=== PATIENT | male | born 1960 | race Caucasian/White ===

== ENCOUNTER 2020-09-18 02:10 | Outpatient (CLI) | payer OTHER, SELFPAY ==
--- NOTE | 2020-09-18 08:45 | DI.RAD_ITS ---
EXAM: XR LUMBAR SPINE COMPLETE CLINICAL HISTORY: LOW BACK PAIN, M54.9. TECHNIQUE: 2D digital imaging was performed. COMPARISON: No exams were available for comparison FINDINGS: There are 5 lumbar type vertebral bodies. There is no spondylolysis or spondylolisthesis. No acute fractures or subluxations. Anterior wedging deformities are seen of T12 and L1 which appear chronic. There is disc space narrowing at T12-L1 and L4-L5. Endplate osteophytes are present throughout the lumbar spine with sparing at the L5-S1 disc level. There are degenerative changes of the facets at L3-L4, L4-L5 and L5-S1. IMPRESSION: Moderate degenerative changes throughout the lumbar spine. If there are radicular concerns an MRI of the lumbar spine may be considered for further evaluation. DATA REPOSITORY: RADIATION DOSE DELIVERED:
--- NOTE | 2020-09-18 08:45 | DI.RAD_ITS ---
EXAM: XR HIP LT COMPLETE AP PELVIS CLINICAL HISTORY: left hip pain,M25.552. TECHNIQUE: 2D digital imaging was performed. COMPARISON: No exams were available for comparison FINDINGS: BONES: No acute fracture is present. No bony destructive lesion is seen. JOINTS: No dislocation present. The hip joints are well maintained. The sacroiliac joints and symphy sis pubis appear unremarkable. Mild degenerative changes are seen in the lower lumbar spine. SOFT TISSUE: Normal. Phleboliths are seen in the pelvis. IMPRESSION: Unremarkable radiographs of the left hip. Degenerative changes in the lower lumbar spine. DATA REPOSITORY: RADIATION DOSE DELIVERED:
== END 2020-09-18 02:30 ==
PROVIDERS: PCP Emergency Medicine; Visit Provider Family Medicine
DX: M47.816 Spondylosis without myelopathy or radiculopathy, lumbar region (principal); M25.552 Pain in left hip
CPT/HCPCS: 72110; 73502

== ENCOUNTER 2020-11-10 16:20 | Outpatient (REF) | payer OTHER, SELFPAY ==
[2020-11-10 21:04] LABS: Calculated LDL 102 mg/dL (<100); Cholesterol 172 mg/dL (<200); HDL Cholesterol 59 mg/dL (40-60); Triglyceride 59 mg/dL (<150)
[2020-11-13 10:22] LABS: PSA, Screening 0.6 ng/mL (0.0-4.5)
== END 2020-11-10 16:21 | disposition home or self-care (01) ==
LOC: LBN 16:20
PROVIDERS: PCP Emergency Medicine; Visit Provider Emergency Medicine
DX: Z00.00 Encounter for general adult medical examination without abnormal findings (principal); Z13.220 Encounter for screening for lipoid disorders; Z12.5 Encounter for screening for malignant neoplasm of prostate
CPT/HCPCS: 80061; 84153

== ENCOUNTER 2022-11-29 00:57 | Outpatient (CLI) | payer OTHER, SELFPAY ==
--- OUTSIDE RECORDS SUMMARY | 2022-11-29 00:58 | XMS_ITS ---
Author Name Edmond Hickey Address [address], [place] [id number] Organization [facility] Address [address], [place] [id number] Care Team Providers Care Lithoplate Maker Name Role Phone Edmond Hickey Unavailable [phone] PROBLEMS Unknown Problems ALLERGIES No Information ENCOUNTERS Encounter Location Date Diagnosis [facility] Occupational Health Department [address] [place] [id number] Nov, Encounter for other administrative examinations Z02.89 [facility] Occupational [facility] Department [address] [place] [id number] Oct, Encounter for other administrative examinations Z02.[address] [id number] Oct, Encounter for other administrative examinations Z02.89 and Encounter for Department of Transportation (DOT) examination for carolynn licence Z02.4 [facility] Department [address] [place] [id number] December, Encounter for other administrative examinations Z02.[address] [id number] Oct, Encounter for commercial drafter medical examination (CDME) Z02.[address] [id number] Aug, Encounter for other administrative examinations Z02.89 IMMUNIZATIONS No Known Immunizations SOCIAL HISTORY Never Assessed REASON FOR REFERRAL FUNCTIONAL STATUS PLAN OF CARE VITAL SIGNS Height 5 ft 6 in in 2021-10-18 Weight 198 lbs 2021-10-18 Heart Rate 67 /min 2021-10-18 BMI 31.95 kg/m2 2021-10-18 MEDICATIONS Unknown Medications PROCEDURES Procedure Date Ordered Result Body Site OCD DOT Physical October 18, 2021 OCD Urine Drug Screen (collection only) December 11, 2021 OCD Urine Drug Screen (collection only) October 18, 2021 OCD DOT Physical October 17, 2020 OCD Urine Drug Screen (collection only) December 20, 2020 OCD Urine Drug Screen (collection only) Sep 02, 2019 OCD Breath Alcohol Drug Testing October 18, 2021 RESULTS Name Result Date Reference Range OCD URINE COLLECTION 2021-12-11 OCD URINE COLLECTION 2021-10-18 OCD URINE COLLECTION 2020-12-20 OCD URINE COLLECTION 2019-09-02 REASON FOR VISIT OCC UDC, OCC udc , occ udc, occ - udc bat, OCC udc , dot w/cdl udc bat, OCC bat, OCC dot , OCC udc,OCC udc , OCC dot ppx w/cdl, OCC udc Insurance Providers Health Insurance Type Health Plan Insurance Address Health Plan Insurance Phone Health Plan Insurance Name Health Plan Coverage Dates Member ID Patient Relationship to Subscriber Patient Address Patient Phone Patient Name Patient Date of Subscriber ID Subscriber Name Subscriber Date of Group No OCD - [employer] [employer] [address] [facility] [id number] OCD - [employer] self Nilson Malka [id number] OCD - [place] [employer] [employer] [place] [address] [facility] [id number] OCD - [place] [employer] [employer] [place] self Nilson Malka [id number] OCD - [employer] [address] [place] [address] OCD - [employer] self Nilson Malka [id number] OCD - [employer] [address] [address] [facility] [address] OCD - [employer] self Nilson Malka [id number] OCD - [place] [address] [address] OCD - [place] self Nilson Malka [id number]
--- NOTE | 2022-11-29 07:15 | DI.RAD_ITS ---
Exam(s) XR SHOULDER RT COMPLETE 2+V EXAM: XR SHOULDER RT COMPLETE 2+V CLINICAL HISTORY: chronic pain,rt shoulder pain, m25.511. TECHNIQUE: 2D digital imaging was performed. Five views. COMPARISON: No exams were available for comparison FINDINGS: BONES: No acute fracture is present. No bony destructive lesion is seen. JOINTS: No dislocation present. AC joint shows minimal degenerative changes. Glenohumeral joint ely ws minimal degenerative changes. SOFT TISSUE: Normal. IMPRESSION: Minimal degenerative changes. DATA REPOSITORY: RADIATION DOSE DELIVERED:
--- NOTE | 2022-11-29 07:15 | DI.RAD_ITS ---
Exam(s) XR THORACIC SPINE COMPLETE EXAM: XR THORACIC SPINE COMPLETE CLINICAL HISTORY: chronic pain,thoracic spine pain,m54.6. TECHNIQUE: 2D digital imaging was performed. Three views. COMPARISON: No exams were available for comparison FINDINGS: BONES: There is no fracture or destructive lesion. The vertebral bodies and posterior elements are un remarkable. Endplate osteophytes greater lower thoracic levels. ALIGNMENT: Mild scoliosis. DISKS: Degenerative changes greater lower thoracic spine. SOFT TISSUE: Visualized lungs are clear. IMPRESSION: Degenerative changes lower thoracic spine. Mild scoliosis. DATA REPOSITORY: RADIATION DOSE DELIVERED:
--- NOTE | 2022-11-29 07:15 | DI.RAD_ITS ---
Exam(s) XR SHOULDER LT COMPLETE 2+V EXAM: XR SHOULDER LT COMPLETE 2+V CLINICAL HISTORY: chronic pain, bilat shoulder pain,m25.512. TECHNIQUE: 2D digital imaging was performed. Three views. COMPARISON: CR XR SHOULDER RT COMPLETE 2+V from 11/29/2022 FINDINGS: BONES: No acute fracture is present. No bony destructive lesion is seen. JOINTS: No dislocation present. Moderate spurring AC joint. Spurring at glenoid. No significant gl enohumeral joint space narrowing. SOFT TISSUE: Normal. IMPRESSION: Mild degenerative changes. DATA REPOSITORY: RADIATION DOSE DELIVERED:
== END 2022-11-29 01:17 ==
LOC: DI 00:57
PROVIDERS: PCP Family Medicine; Visit Provider Family Medicine
DX: M25.511 Pain in right shoulder (principal); M25.512 Pain in left shoulder; M54.6 Pain in thoracic spine
CPT/HCPCS: 72072; 73030

== ENCOUNTER 2023-01-03 09:37 | Outpatient (CLI) | payer OTHER, SELFPAY ==
[2023-01-03 12:27] LABS: Anion Gap 9.7 mmol/L (3-11); BUN 22 mg/dL (7-18); CO2 24.3 mmol/L (21.0-32.0); CREATININE 1.4 mg/dL (0.70-1.30); Calcium 9.1 mg/dL (8.5-10.1); Chloride 106 mmol/L (98-107); Estimated GFR 56.13 (mL/min/1.73m2); Glucose 113 mg/dL (74-106); Potassium 4.7 mmol/L (3.5-5.1); Sodium 140 mmol/L (136-145)
[2023-01-06 09:27] LABS: PSA, Screening 0.8 ng/mL (<=4.5)
[2023-01-06 10:54] LABS: Hepatitis C Ab w Rflx HCV PCR Negative (Negative)
== END 2023-01-03 09:38 | disposition home or self-care (01) ==
PROVIDERS: PCP Family Medicine; Visit Provider Family Medicine
DX: Z00.00 Encounter for general adult medical examination without abnormal findings (principal); I10 Essential (primary) hypertension; Z11.59 Encounter for screening for other viral diseases; Z12.5 Encounter for screening for malignant neoplasm of prostate
CPT/HCPCS: 36415; 80048; 84153; 86803

== ENCOUNTER 2023-05-30 08:12 | Outpatient (CLI) | payer OTHER, SELFPAY ==
[2023-05-30 12:53] LABS: Anion Gap 6.6 mmol/L (3-11); BUN 17 mg/dL (7-18); CO2 27.4 mmol/L (21.0-32.0); CREATININE 1.3 mg/dL (0.70-1.30); Calcium 9.1 mg/dL (8.5-10.1); Chloride 106 mmol/L (98-107); Estimated GFR 61.35 (mL/min/1.73m2); Glucose 119 mg/dL (74-106); Sodium 140 mmol/L (136-145)
== END 2023-05-30 08:13 | disposition home or self-care (01) ==
LOC: LOS 08:13
PROVIDERS: PCP Family Medicine; Visit Provider Family Medicine
DX: I10 Essential (primary) hypertension (principal); N28.9 Disorder of kidney and ureter, unspecified
CPT/HCPCS: 36415; 80048

== ENCOUNTER 2023-05-30 13:17 | Outpatient (CLI) | payer OTHER, SELFPAY ==
--- NOTE | 2023-05-30 13:15 | RT.EKG_ITS ---
APPROVED REPORT Exam: Resting ECG Reason for Exam: shortness of breath Patient Location: O HR:75 bpm ECG Measurements Heart Rate 75 AXIS NV 169 P 54 QRSd 202 QRS -55 QT 493 T 128 QTc 551 Conclusion Sinus rhythm...normal P axis, V-rate 50- 99 Left bundle branch block...QRSd>120, broad/notched R
== END 2023-05-30 13:18 | disposition home or self-care (01) ==
LOC: DI.CM 13:18
PROVIDERS: PCP Family Medicine; Visit Provider Family Medicine
DX: R06.02 Shortness of breath (principal)
CPT/HCPCS: 93010

== ENCOUNTER 2023-05-30 14:02 | Emergency (ER) | payer OTHER, SELFPAY ==
[2023-05-30] VITALS (7 sets, daily range): BP systolic 115–127; BP diastolic 76–93; PULSE 68–85; RESP 15–30; TEMP 36.8; O2SAT 97–98
--- NOTE | 2023-05-30 14:00 | RT.EKG_ITS ---
APPROVED REPORT Exam: Resting ECG Reason for Exam: Chest Pain Patient Location: E HR:78 bpm ECG Measurements Heart Rate 78 AXIS AK 164 P 59 QRSd 199 QRS -54 QT 487 T 126 QTc 557 Conclusion Sinus rhythm...normal P axis, V-rate 60- 99 Left atrial enlargement...P, P'>60mS, <-0.15mV V1 Left bundle branch block...QRSd>120, broad/notched R ST elevation secondary to IVCD...Multiple VCG criteria I have reviewed and interpreted ECG and agree with software generated interpretation. There are no significant changes compared to prior EKG from 03/04/2012
--- NOTE | 2023-05-30 14:28 | ED.GENADUL_ITS ---
Discharge Plan Disposition Patient Disposition: Transfer-Acute Inpatient Care Specific Acute Inpt Facility: [facility] Condition: Stable Discharge Details Clinical Impression: Severe left ventricular systolic dysfunction (LVSD), CHF (congestive heart failure) Primary Care Provider: Charity Rapp ED Provider: Efrain Guaman [place] Meds and New Rx's Prescriptions: No Action ibuprofen 200 mg tablet 400 mg PO Q6H PRN Hold Instructions: Adverse Reaction meloxicam 7.5 mg tablet 7.5 mg PO DAILY Qty: 30 2RF Hold Instructions: Adverse Reaction sildenafil 100 mg tablet 100 mg PO DAILY PRN (Reason: sexual activity) Qty: 30 5RF Rx Instructions: administer 30 minutes to 4 hours before activity Medical Decision Making Patient presenting to ED with chief complaint of shortness of breath worse with exertion. Also reports some chest pain but cannot describe it also worse with exertion. Symptoms progressive over the last 3 weeks. Denies any other symptomatology but has not had this previously. He is a non-smoker and denies a ny significant past medical history. He is short of breath just sitting on the stretcher but does have normal saturations and vital signs. We will plan IV, labs, CTA chest. His EKG is sinus rhythm, left bundle branch block which has been present since 2012. Patient laboratory studies mostly unremarkable. CBC, chemistries, kidney function, liver function all normal. BNP is elevated at 1484. Troponin just slightly above normal at 71. CT scan discussed with radiology. There is no PE or infiltrate. There is evidence of interstitial edema and a small pleural effusion. He has marked cardiomegaly. A POCUS cardiac ECHO was performed by Dr. Avendaño here. Patient has global hypokinesis of the left ventricle which is very enlarged with an EF of around 10%. There is severe mitral regurg. Evidence of fluid throughout lung godinez with curly B-lines noted from base to apex. Will attempt to send POCUS exam as well as EKG to [facility] and discussed with cardiology there. Per the patient no significant chest pain or pressure within the last month. No viral illnesses within the last 2 months. Patient discussed with cardiology. Patient will be excepted to [facility] cardiology for further evaluation and management of his CHF and severe LV dysfunction. Patient will receive IV Lasix 40 mg x 1 here. We will continue to monitor pending transfer when bed becomes available later tonight or tomorrow morning. Patient aware of need for transfer. Patient consented to same. Lab Data Lab results reviewed: Yes I reviewed the patient's lab results. Lab results narrative: Significant for elevated BNP and minimally elevated troponin. ECG Data Attestation: I personally reviewed and interpreted this ECG (s) as follows: Prior ECG tracings: available for review Interpretation: see EKG HPI General Mode of arrival: ambulatory . Date/Time Provider Initiated Documentation: 05/30/23 14:28 . Limitations to Documentation: no limitations . Information obtained by: patient . HPI Narrative: Patient presents to ED with complaint of shortness of breath. Symptoms began approximately 3 weeks ago and have progressed to the point where he is unable to even bend over to tie his shoes without getting short of breath. He does report some chest pain but cannot really describe it. Both pain and shortness of breath worsened significantly with any type of exertion. He denies any previous cardiac problems. He denies any history of hypertension, high cholesterol, diabetes. He does not smoke. Denies any leg pain or leg swelling. Continues to make urine. Denies any significant weight gain. Denies any fever, cough, URI type symptoms. Was seen at PCP office and referred him to ED for evaluation. Related Data Home Medications Medication Instructions Recorded Confirmed ibuprofen 200 mg tablet 400 mg PO Q6H PRN 09/07/20 05/30/23 sildenafil 100 mg tablet 100 mg PO DAILY PRN sexual 10/24/22 05/30/23 activity #30 tabs meloxicam 7.5 mg tablet 7.5 mg PO DAILY #30 tabs 11/15/22 05/30/23 Previous Rx's Medication Instructions Recorded sildenafil 100 mg tablet 100 mg PO DAILY PRN sexual 10/24/22 activity #30 tabs meloxicam 7.5 mg tablet 7.5 mg PO DAILY #30 tabs 11/15/22 Allergies Allergy/AdvReac Type Severity Reaction Status Date / Time No Known Allergies Allergy Unverified 05/30/23 14:16 General Stated Complaint: SOB JOLEEN: 2 Review of Systems Narrative: per HPI PFSH All Active Problems (Updated 05/30/23 @ 19:25 by Efrain Guaman MD) CHF (congestive heart failure) (Chronic) Severe left ventricular systolic dysfunction (LVSD) (Acute) Thoracic spine pain (Chronic) Bilateral shoulder pain (Chronic) Medical History (Updated 05/30/23 @ 19:25 by Efrain Guaman MD) 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 Sister No problems noted. Brother No problems noted. Sister No problems noted. Sister Dementia Brother No problems noted. Brother No problems noted. Sister No problems noted. Social History Smoking/Tobacco Use Status: Never Second Hand Exposure: Yes Smoking risk assessment performed?: Yes Alcohol Intake: never Drug use: Never Substance use type: does not use Household members: spouse Housing: house Number of Children: 3 number of grandchildren: 10 Education Level: high school current occupation: works short haul regional company truck driver - [employer] Pets and animals: No Sexually active: Yes Do you think of yourself as: straight/heterosexual What is your relationship status?: How often do you talk on the phone with friends or family?: three or more times per week How often do you get together with friends or relatives?: once per week How often do you attend anabaptism or muslim services?: 1-3 times per year Do you belong to any clubs or organized social groups?: yes Panel score (0-1 are the most socially isolated patients): 3 Duration: 45-60 minutes/day Frequency: 1-2 times per week Diamond/Confucianist: Buddhism Seatbelt use: always Helmet use: Yes Helmet use: always Drive intox or ride w/intox stacker driver: No Additional Social history: Enjoys hunting deer. Exam Narrative Exam Narrative: Const: WDWN male in NAD. HEENT: NC/AT. Normal facial exam. Eyes: Normal conjunctiva and sclera. Neck: Supple. Trachea midline. Lungs: Normal respiratory effort. Lungs with few crackles at lateral bases. Cor: RRR without murmur/gallop. Good radial pulses. GI: Soft. NT/ND. Neuro: A+O x 3. Normal speech, mentation, gait. Cranial nerves II - XII g rossly intact. No gross motor or sensory deficit. Ext: No C/C/E. No calf tenderness. Skin: Warm and dry without rash. Course Vital Signs Vital signs: Vital Signs Temperature 98.2 F 05/30/23 14:09 Pulse 85 05/30/23 14:09 Respiratory Rate 15 05/30/23 14:09 Blood Pressure 115/88 05/30/23 14:09 Pulse Oximetry 97 05/30/23 14:09 Temperature 98.2 F 05/30/23 14:09 Temperature Source Temporal Artery Scan 05/30/23 14:09 Pulse 85 05/30/23 14:09 Respiratory Rate 15 05/30/23 14:09 Respiratory Effort Short of Breath 05/30/23 14:15 Blood Pressure 115/88 05/30/23 14:09 Blood Pressure Position Sitting 05/30/23 14:09 Pulse Oximetry 97 05/30/23 14:09 Oxygen Delivery Method Room Air 05/30/23 14:09 Oxygen Flow Rate 0 05/30/23 14:09 Pain Level 6 05/30/23 14:09 POCUS Exam (ED) Limited Cardiac Exam DATE OF EXAM: 05/30/23 TIME OF EXAM: 18:30 PROVIDER THAT PERFORMED THE STUDY: Jimmy Avendaño IS THIS A REPEAT EXAM DURING THIS ENCOUNTER: no REASON FOR EXAM: Dyspnea VISUALIZED STRUCTURES: Four Chambers, Left atrium, Left ventricle, LVOT, Right atrium, Right ventricle, Aortic valve, Mitral valve, Interventricular septum and IVC VIEW OBTAINED: Apical 4-Chamber, Parasternal long-axis, Parasternal short-axis, Subxiphoid and Other (A2C view, IVC view) PERTINENT FINDINGS/IMPRESSION: IVC inspiratory collapsability (no collapsability), LV dysfunction (severely reduced LV function EF aprox 10%) :severe and Plethoric IVC; No pericardial effusion Exam complete PAWSS Have you Been Recently Intoxicated or Drunk Within the Last 30 days?: No Have you Ever Experienced Previous Episodes of Alcohol Withdrawal?: No Have you ever Experienced Withdrawal Seizures?: No Have you ever Experienced Delirium Tremens(DT)s?: No Have you ever undergone Alcohol Rehabilitation Treatment (i.e, inpt ot outpatient treatment programs)?: No Have you ever Experienced Blackouts?: No Have you ever Combined Alcohol with other Downers within the last 90 days?: No Have you ever Combined Alcohol with any other Substance of Abuse during the last 90 days?: No Result: 0
[2023-05-30 15:30] LABS: Abs Immature Grans 0.02 10^3/uL (0.0-0.06); Absolute Basophil Count 0.03 10^3/uL (0.0-0.2); Absolute Eosinophil Count 0.07 10^3/uL (0.0-0.7); Absolute Monocyte Count 0.38 10^3/uL (0.1-0.8); Absolute Neutrophil Count 4.14 10^3/uL (1.2-6.7); Basophils % 0.5; Eosinophils % 1.1; HCT 41.4 % (40.0-50.0); HGB 14.7 g/dL (13.5-17.5); Immature Grans % 0.3; Lymphocytes % 26.8; MCH 31.4 pg (27.0-33.0); MCHC 35.5 % (32.0-36.0); MCV 89 fL (80-95); MPV 11.1 fL (8.0-11.0); Neutrophils % 65.3; Platelet Count 146 10^3/uL (130-400); RBC 4.68 10^6/uL (4.36-5.78); RDW 12.3 % (11.8-14.1); RDW-SD 40.1 fL; WBC 6.34 10^3/uL (4.4-10.8)
[2023-05-30 15:53] LABS: ALT 39 U/L (16-63); AST 28 U/L (15-37); Albumin 3.7 g/dL (3.4-5.0); Alkaline Phosphatase 73 U/L (46-116); Anion Gap 5.7 mmol/L (3-11); BUN 18 mg/dL (7-18); Bilirubin, Total 0.5 mg/dL (0.2-1.0); CO2 27.3 mmol/L (21.0-32.0); CREATININE 1.2 mg/dL (0.70-1.30); Chloride 105 mmol/L (98-107); Estimated GFR 67.53 (mL/min/1.73m2); Glucose 95 mg/dL (74-106); NT-proBNP 1484 pg/mL (<300); Potassium 4.5 mmol/L (3.5-5.1); Sodium 138 mmol/L (136-145); Total Protein 6.9 g/dL (6.4-8.2)
[2023-05-30 15:54] LABS: Troponin I 71 ng/L (<or=60)
--- NOTE | 2023-05-30 17:15 | DI.CT_ITS ---
Exam(s) CT CHEST PE CTA EXAM: CT CHEST PE CTA CLINICAL HISTORY: dYSPNEA. TECHNIQUE: Imaging Protocol: Axial CT angiography was performed with multi-slice acquisition and mu lti-planar and/or 3D reconstructions. CONTRAST MATERIAL: Intravenous: Omnipaque 350 contrast volume:100 mL COMPARISON: No exams were available for comparison FINDINGS: Tracheobronchial tree: There is peribronchial thickening. Pulmonary parenchyma: There is smooth interlobular septal thickening. There is cardiomegaly. There is also small bilateral pleural effusion, right greater than left. The findings are suspicious for c ongestive heart failure. No focal consolidations are present. Pulmonary Arteries: No evidence of filling defect to suggest pulmonary emboli. Mediastinum and Christiane: No dominant adenopathy or fluid collection. The esophagus is unremarkable. Visualized thyroid gland: Unremarkable. Pleura: Small bilateral pleural effusions, right greater than left. No pneumothorax. Heart: Cardiomegaly. Coronary artery calcification is present. The RV to LV ratio is less than 1 wh ich is within normal limits. No pericardial effusion. Aorta: Thoracic aorta non-dilated. Upper abdomen: Unremarkable. Soft tissues: The right pectoralis muscle is markedly decreased in size compared to the left. There is also relative atrophy of the right chest wall musculature. Bones: Within normal limits for the patient's age. IMPRESSION: 1. No evidence of a pulmonary embolism or thoracic aortic aneurysm. 2. Cardiomegaly, small pleural effusions and interlobular septal thickening which may represent pulmo nary edema. Findings are suspicious for fluid overload/CHF. Please correlate clinically. 3. No focal consolidating infiltrates. 4. Findings were discussed with Dr. Guaman at 6:02 p.m. on 05/30/2023. RADIATION DOSE DELIVERED: Total DLP DATA REPOSITORY: All CT scans at this facility are submitted to the National Radiology Data Registry (NRDR) Dose Index Registry (DIR) with the [employer] (ACR). RADIATION OPTIMIZATION: All CT scans at this facility use at least one of these dose optimization te chniques: automated exposure control; mA and/or kV adjustment per patient size (includes targeted exa ms where dose is matched to clinical indication); or iterative reconstruction.
[2023-05-30] MEDS: Normal Saline - Diluent 50 ML VIAL IJ (17:35)
[2023-05-30] MEDS: Omnipaque 350 MG/ML 100 ML BTL IJ (17:38)
[2023-05-30] MEDS: Normal Saline Flush 10 ML SYR IVP (17:39)
[2023-05-30] MEDS: Furosemide 40 MG/4 ML VIAL IVP (19:18)
== END 2023-05-30 21:51 | disposition short-term general hospital (02) ==
PROVIDERS: Emergency Provider Emergency Medicine; PCP Family Medicine
DX: R07.9 Chest pain, unspecified; I50.20 Unspecified systolic (congestive) heart failure
CPT/HCPCS: 71275; 80053; 93005; 93308; 96374; 99285; 83735; 83880; 84484; 85025; 93010; J1940; J3490

== ENCOUNTER 2023-07-16 08:25 | Outpatient (RCR) | payer OTHER, SELFPAY | END 2023-07-17 23:59 | disposition home or self-care (01) | LOC: CR 08:25 | PROVIDERS: PCP Family Medicine; Visit Provider Internal Medicine Cardiovascular Disease | DX: I50.20 Unspecified systolic (congestive) heart failure (principal); I42.9 Cardiomyopathy, unspecified; Z51.89 Encounter for other specified aftercare | CPT/HCPCS: S9472 ==

== ENCOUNTER 2023-08-15 08:10 | Outpatient (RCR) | payer OTHER, SELFPAY ==
--- NOTE | 2023-07-25 08:15 | RT.EKG_ITS ---
APPROVED REPORT Exam: Resting ECG Reason for Exam: ? rhythm changes Patient Location: O HR:64 bpm ECG Measurements Heart Rate 64 AXIS NV 174 P 55 QRSd 206 QRS -64 QT 526 T 114 QTc 543 Conclusion Sinus arrhythmia...V-rate 56- 71, variation>10% Ventricular premature complex...V complex w/ short R-R interval Probable left atrial enlargement...P >50mS, <-0.10mV V1 Left bundle branch block...QRSd>120, broad/notched R
== END 2023-08-17 23:59 | disposition home or self-care (01) ==
LOC: CR 08:10
PROVIDERS: PCP Family Medicine; Visit Provider Internal Medicine Cardiovascular Disease
DX: Z51.89 Encounter for other specified aftercare (principal); I50.23 Acute on chronic systolic (congestive) heart failure; I42.9 Cardiomyopathy, unspecified
CPT/HCPCS: S9472

== ENCOUNTER 2023-09-15 08:08 | Outpatient (RCR) | payer OTHER, SELFPAY | END 2023-09-17 23:59 | disposition home or self-care (01) | LOC: CR 08:08 | PROVIDERS: PCP Family Medicine; Visit Provider Internal Medicine Interventional Cardiology | DX: I50.23 Acute on chronic systolic (congestive) heart failure (principal); Z51.89 Encounter for other specified aftercare | CPT/HCPCS: S9472 ==

== ENCOUNTER 2023-10-13 08:00 | Outpatient (RCR) | payer OTHER, SELFPAY | END 2023-10-16 23:59 | disposition home or self-care (01) | LOC: CR 08:00 | PROVIDERS: PCP Family Medicine; Visit Provider Internal Medicine Cardiovascular Disease | DX: I50.23 Acute on chronic systolic (congestive) heart failure (principal); Z51.89 Encounter for other specified aftercare | CPT/HCPCS: S9472 ==

== ENCOUNTER 2023-11-14 08:00 | Outpatient (RCR) | payer OTHER, SELFPAY | END 2023-11-16 23:59 | disposition home or self-care (01) | LOC: CR 08:00 | PROVIDERS: PCP Family Medicine; Visit Provider Internal Medicine Cardiovascular Disease | DX: I50.23 Acute on chronic systolic (congestive) heart failure (principal); Z51.89 Encounter for other specified aftercare | CPT/HCPCS: S9472 ==

== ENCOUNTER 2023-12-15 08:11 | Outpatient (RCR) | payer OTHER, SELFPAY | END 2023-12-16 23:59 | disposition home or self-care (01) | LOC: CR 08:11 | PROVIDERS: PCP Family Medicine; Visit Provider Internal Medicine Cardiovascular Disease | DX: I50.23 Acute on chronic systolic (congestive) heart failure (principal); Z51.89 Encounter for other specified aftercare | CPT/HCPCS: S9472 ==

== ENCOUNTER 2024-01-07 08:00 | Outpatient (RCR) | payer OTHER, SELFPAY | END 2024-01-16 23:59 | disposition home or self-care (01) | LOC: CR 08:00 | PROVIDERS: PCP Family Medicine; Visit Provider Internal Medicine Cardiovascular Disease | DX: I50.20 Unspecified systolic (congestive) heart failure (principal); Z51.89 Encounter for other specified aftercare | CPT/HCPCS: S9472 ==

== ENCOUNTER 2024-05-31 11:19 | Outpatient (CLI) | payer OTHER, SELFPAY ==
--- NOTE | 2024-05-31 09:45 | DI.RAD_ITS ---
Exam(s) XR SCOLIOSIS T-L SPINE EXAM: XR SCOLIOSIS T-L SPINE CLINICAL HISTORY: scoliosis, m41.9. TECHNIQUE: 2D digital imaging was performed. COMPARISON: CT CT CHEST PE CTA from 05/30/2023 FINDINGS: Standing scoliosis series reveals no significant scoliosis in the thoracic spinal column. No abnorma l widening of the paraspinal lines no listhesis. No obvious osseous lesions. There is a very minimal scoliosis convex left in the lumbar spine, barely measurable. There is advan mariah disc space narrowing at L4-5 level. No listhesis evident. Also advanced disc space narrowing an d anterior osteophytes at T12-L1 level. Bone density normal. No osseous lesions. Cardiomegaly and bipolar left subclavian pacemaker noted which has been placed since prior images of 05/30/2023. IMPRESSION: No significant scoliosis. Chronic degenerative disc disease L4-5 level. No listhesis evident. DATA REPOSITORY: RADIATION DOSE DELIVERED:
== END 2024-05-31 11:39 ==
LOC: DI 11:19
PROVIDERS: PCP Family Medicine; Visit Provider Family Medicine
DX: M51.369 Other intervertebral disc degeneration, lumbar region without mention of lumbar back pain or lower extremity pain (principal)
CPT/HCPCS: 72082

== ENCOUNTER 2024-10-05 07:13 | Outpatient (CLI) | payer OTHER, SELFPAY ==
[2024-10-05 13:42] LABS: ALT 27 U/L (16-63); AST 28 U/L (15-37); Albumin 4.1 g/dL (3.4-5.0); Alkaline Phosphatase 83 U/L (46-116); Anion Gap 7.6 mmol/L (3-11); BUN 23 mg/dL (7-18); Bilirubin, Total 1.12 mg/dL (0.2-1.0); CO2 27.4 mmol/L (21.0-32.0); CREATININE 1.4 mg/dL (0.70-1.30); Calcium 9.1 mg/dL (8.5-10.1); Calculated LDL 62 mg/dL (<100); Chloride 105 mmol/L (98-107); Cholesterol 129 mg/dL (<200); Estimated GFR 55.43 (mL/min/1.73m2); Glucose 110 mg/dL (74-106); HDL Cholesterol 56 mg/dL (40-60); Potassium 4.5 mmol/L (3.5-5.1); Sodium 140 mmol/L (136-145); Total Protein 7.3 g/dL (6.4-8.2); Triglyceride 55 mg/dL (<150)
== END 2024-10-05 07:14 | disposition home or self-care (01) ==
LOC: LOS 07:13
PROVIDERS: PCP Family Medicine; Referring Provider Family Medicine; Visit Provider Family Medicine
DX: Z00.00 Encounter for general adult medical examination without abnormal findings (principal); I50.20 Unspecified systolic (congestive) heart failure; Z13.6 Encounter for screening for cardiovascular disorders
CPT/HCPCS: 36415; 80053; 80061

== ENCOUNTER 2025-01-28 01:42 | Outpatient (CLI) | payer OTHER, SELFPAY ==
[2025-01-28 13:30] LABS: ALT 39 U/L (16-63); AST 32 U/L (15-37); Alkaline Phosphatase 90 U/L (46-116); Anion Gap 8.6 mmol/L (3-11); BUN 27 mg/dL (7-18); CO2 26.4 mmol/L (21.0-32.0); CREATININE 1.3 mg/dL (0.70-1.30); Calculated LDL 63 mg/dL (<100); Chloride 103 mmol/L (98-107); Cholesterol 128 mg/dL (<200); Estimated GFR 60.59 (mL/min/1.73m2); Glucose 114 mg/dL (74-106); HDL Cholesterol 54 mg/dL (>or=40); Potassium 4.2 mmol/L (3.5-5.1); Sodium 138 mmol/L (136-145); Total Protein 7.1 g/dL (6.4-8.2); Triglyceride 55 mg/dL (<150)
[2025-01-28 18:57] LABS: PSA, Screening 0.7 ng/mL (<=4.5)
== END 2025-01-28 01:43 | disposition home or self-care (01) ==
LOC: LOS 01:42
PROVIDERS: PCP Family Medicine; Visit Provider Family Medicine
DX: Z12.5 Encounter for screening for malignant neoplasm of prostate (principal); Z00.00 Encounter for general adult medical examination without abnormal findings; I50.20 Unspecified systolic (congestive) heart failure; Z13.6 Encounter for screening for cardiovascular disorders
CPT/HCPCS: 36415; 80053; 80061; 84153